=== PATIENT | female | born 1970 | race African-American/Black ===

== ENCOUNTER 2017-05-13 12:38 | Emergency (ER) | payer OTHER ==
[~2017-05-13] VITALS: Ht 157.5 cm; Wt 102.5 kg
[~2017-05-13 12:38] MED LIST: ACETAMINOPHEN-1 EAC1 PO; AMBIEN PO; ASPIRIN EC81 M1 PO; CLEOCIN HCL300 MG PO; CYMBALTA; DESYREL100 MG PO; DESYREL50 MG PO; DOXYCYCLINE 10100 M1 PO; HYDROCHLOROTHIA25 M1 PO; K-DUR10 MEQ PO; KEFLEX500 M1 PO; LOPRESSOR100 MG PO; MEVACOR 20 MG T20 MG; NORCO 5-325 TA1 EACH PO; PREDNISONE50 MG PO; PRILOSEC 20 MG20 MG PO; PRILOSEC40 MG PO; SLOW-MAG64 MG PO; TOPROL XL100 MG PO; WELLBUTRIN SR150 MG PO; WELLBUTRIN XL300 MG PO; ZANTAC 150MG T150 MG PO; ZOCOR 20 MG TAB20 M1 PO; ZOFRAN ODT4 MG PO; ZPAK PO
[2017-05-13] MEDS ORDERED: DULERA 100 MCG/13 GM INH (13:02)
[2017-05-13] MEDS ORDERED: VENTOLIN HFA 1818 GM INH (13:02)
[2017-05-13] MEDS ORDERED: WELLBUTRIN XL300 MG PO (13:03)
[2017-05-13] MEDS ORDERED: PRINIVIL10 MG PO (13:03)
[2017-05-13] MEDS ORDERED: SINGULAIR 10 MG10 M1 PO (13:03)
[2017-05-13] MEDS ORDERED: PREDNISONE 20 M20 M1 PO (13:14)
[2017-05-13] MEDS ORDERED: PROAIR HFA8.5 GM INH (13:14)
[2017-05-13] MEDS ORDERED: ZPAK PO (13:14)
[2017-05-13 13:19] VITALS: BP 139/70
== END 2017-05-13 13:20 | disposition home or self-care (01) ==
LOC: M.ERS 12:38
DX: J18.1 Lobar pneumonia, unspecified organism (principal); J45.909 Unspecified asthma, uncomplicated; F32.9 Major depressive disorder, single episode, unspecified; I10 Essential (primary) hypertension; E78.00 Pure hypercholesterolemia, unspecified; Z98.890 Other specified postprocedural states; Z88.5 Allergy status to narcotic agent

== ENCOUNTER 2017-05-30 15:42 | Emergency (ER) | payer OTHER ==
[~2017-05-30] VITALS: Ht 154.9 cm; Wt 103.9 kg
[~2017-05-30 15:42] MED LIST changes: +DULERA 100 MCG/13 GM INH; +PREDNISONE 20 M20 M1 PO; +PRINIVIL10 MG PO; +PROAIR HFA8.5 GM INH; +SINGULAIR 10 MG10 M1 PO; +VENTOLIN HFA 1818 GM INH
[2017-05-30] MEDS ORDERED: VITAMIN D2000 UNIT PO (16:29)
[2017-05-30] MEDS ORDERED: MULTI-VITAMIN1 EAC5 PO (16:29)
[2017-05-30] MEDS ORDERED: PREDNISONE 20 M20 M1 PO (16:40)
[2017-05-30] MEDS ORDERED: TESSALON PERLE100 MG PO (16:40)
[2017-05-30] MEDS ORDERED: CHERATUSSIN AC118 ML PO (16:48)
[2017-05-30 17:13] VITALS: BP 110/69
== END 2017-05-30 17:14 | disposition home or self-care (01) ==
LOC: M.ERS 15:42
DX: J45.909 Unspecified asthma, uncomplicated (principal); F32.9 Major depressive disorder, single episode, unspecified; Z98.890 Other specified postprocedural states; E78.00 Pure hypercholesterolemia, unspecified; Z88.6 Allergy status to analgesic agent

== ENCOUNTER 2017-12-04 19:05 | Emergency (ER) | payer OTHER ==
[~2017-12-04] VITALS: Ht 157.5 cm; Wt 106.6 kg
[~2017-12-04 19:05] MED LIST changes: +CHERATUSSIN AC118 ML PO; +MULTI-VITAMIN1 EAC5 PO; +TESSALON PERLE100 MG PO; +VITAMIN D2000 UNIT PO
[2017-12-04] MEDS ORDERED: FLONASE 0.05%50 MCG NASAL (19:27)
[2017-12-04] MEDS ORDERED: ALLEGRA ALLERG180 MG PO (19:27)
[2017-12-04] MEDS ORDERED: PREDNISONE 20 M20 M1 PO (19:27)
[2017-12-04 19:35] VITALS: BP 127/83
== END 2017-12-04 19:35 | disposition home or self-care (01) ==
LOC: M.ERS 19:05
DX: R05 Cough (principal); R09.89 Other specified symptoms and signs involving the circulatory and respiratory systems; R06.02 Shortness of breath; F32.9 Major depressive disorder, single episode, unspecified; J45.909 Unspecified asthma, uncomplicated; E78.00 Pure hypercholesterolemia, unspecified; Z98.890 Other specified postprocedural states; Z88.6 Allergy status to analgesic agent

== ENCOUNTER 2018-04-04 10:22 | Emergency (ER) | payer OTHER ==
[~2018-04-04] VITALS: Ht 154.9 cm; Wt 103.9 kg
[~2018-04-04 10:22] MED LIST changes: +ALLEGRA ALLERG180 MG PO; +FLONASE 0.05%50 MCG NASAL
[2018-04-04] MEDS ORDERED: BLOOD PRESSURE MED (10:37)
[2018-04-04] MEDS ORDERED: WELLBUTRIN 100100 MG PO (10:37)
[2018-04-04] MEDS ORDERED: XANAX1 MG PO (10:37)
[2018-04-04] MEDS ORDERED: ROBAXIN 750 MG750 M1 PO (11:14)
[2018-04-04 11:23] VITALS: BP 122/66
== END 2018-04-04 11:23 | disposition home or self-care (01) ==
LOC: M.ERS 10:22
DX: S39.012A Strain of muscle, fascia and tendon of lower back, initial encounter (principal); M53.3 Sacrococcygeal disorders, not elsewhere classified; F32.9 Major depressive disorder, single episode, unspecified; J45.909 Unspecified asthma, uncomplicated; E78.00 Pure hypercholesterolemia, unspecified; Z98.890 Other specified postprocedural states; Z88.6 Allergy status to analgesic agent; Z88.8 Allergy status to other drugs, medicaments and biological substances; W08.XXXA Fall from other furniture, initial encounter; Y93.89 Activity, other specified; Y92.89 Other specified places as the place of occurrence of the external cause; Y99.8 Other external cause status

== ENCOUNTER 2018-05-09 11:57 | Emergency (ER) | payer OTHER ==
[~2018-05-09] VITALS: Ht 157.5 cm; Wt 109.3 kg
[~2018-05-09 11:57] MED LIST changes: +BLOOD PRESSURE MED; +ROBAXIN 750 MG750 M1 PO; +WELLBUTRIN 100100 MG PO; +XANAX1 MG PO
[2018-05-09] MEDS ORDERED: HYDROCODON-ACE1 EAC7 PO (12:54)
[2018-05-09] MEDS ORDERED: MOBIC15 MG PO (12:54)
[2018-05-09 13:13] VITALS: BP 136/87
== END 2018-05-09 13:14 | disposition home or self-care (01) ==
LOC: M.ERS 11:57
DX: G56.01 Carpal tunnel syndrome, right upper limb (principal); J45.909 Unspecified asthma, uncomplicated; E78.00 Pure hypercholesterolemia, unspecified; F32.9 Major depressive disorder, single episode, unspecified; Z88.6 Allergy status to analgesic agent; Z88.8 Allergy status to other drugs, medicaments and biological substances; Z98.890 Other specified postprocedural states

== ENCOUNTER 2018-07-30 18:48 | Emergency (ER) | payer OTHER ==
[~2018-07-30] VITALS: Ht 154.9 cm; Wt 106.1 kg
[~2018-07-30 18:48] MED LIST changes: +HYDROCODON-ACE1 EAC7 PO; +MOBIC15 MG PO
[2018-07-30 20:32] LABS: URINE BILIRUBIN NEGATIVE (Negative); URINE BLOOD NEGATIVE (Negative); URINE CLARITY CLEAR; URINE COLOR YELLOW; URINE GLUCOSE-RANDOM NEGATIVE (Negative); URINE KETONES NEGATIVE (Negative); URINE LEUKOCYTES-REFLEX NEGATIVE (Negative); URINE NITRITE-REFLEX NEGATIVE (Negative); URINE PROTEIN NEGATIVE (Negative); URINE SPECIFIC GRAVITY 1.015 (1.005-1.030); URINE UROBILINOGEN 0.2 E.U./dl (0.2-1.0)
[2018-07-30] MEDS ORDERED: FLEXERIL PO (20:55)
[2018-07-30] MEDS ORDERED: MOBIC7.5 MG PO (20:55)
[2018-07-30 21:17] VITALS: BP 123/89
== END 2018-07-30 21:17 | disposition home or self-care (01) ==
LOC: M.ERS 18:48
PROVIDERS: Nurse Practitioner Family
DX: S29.012A Strain of muscle and tendon of back wall of thorax, initial encounter (principal); F32.9 Major depressive disorder, single episode, unspecified; J45.909 Unspecified asthma, uncomplicated; E78.00 Pure hypercholesterolemia, unspecified; Z98.890 Other specified postprocedural states; Z88.6 Allergy status to analgesic agent; Z88.8 Allergy status to other drugs, medicaments and biological substances; X58.XXXA Exposure to other specified factors, initial encounter; Y93.89 Activity, other specified; Y92.89 Other specified places as the place of occurrence of the external cause; Y99.8 Other external cause status

== ENCOUNTER 2018-11-11 19:58 | Emergency (ER) | payer OTHER ==
[~2018-11-11] VITALS: Ht 154.9 cm; Wt 113.3 kg
[~2018-11-11 19:58] MED LIST changes: +FLEXERIL PO; +MOBIC7.5 MG PO
[2018-11-11] MEDS ORDERED: NEURONTIN 300300 M1 PO (20:13)
[2018-11-11] MEDS ORDERED: LIPITOR 20 MG T20 M1 PO (20:13)
[2018-11-11] MEDS ORDERED: METFORMIN HCL500 MG PO (20:13)
[2018-11-11 20:38] LABS: ABSOLUTE EOSINOPHILS 0.1 thou/uL (0.0-0.7); ABSOLUTE MONOCYTES 0.4 thou/uL (0.0-1.2); ABSOLUTE NEUTROPHILS 5.1 thou/uL (1.6-8.1); BASOPHILS 0.4 %; EOSINOPHILS 1.3 %; HEMATOCRIT 41.3 % (37.0-47.0); HEMOGLOBIN 13.7 gm/dL (12.0-15.0); LYMPHOCYTES 26.2 %; MCH 30.3 pg (26.0-34.0); MCHC 33.2 g/dL (28.0-37.0); MCV 91.4 fL (80.0-100.0); MONOCYTES 5.7 %; MPV 7.2 fl. (7.2-11.1); NUCLEATED RBCS 0 /100WBC; PLATELET COUNT* 212 thou/uL (150-400); POLYS 66.4 %; RBC 4.52 mil/uL (4.20-5.00); RDW-CV 13.2 % (10.5-14.5); WBC 7.7 thou/uL (4.0-11.0)
[2018-11-11 20:47] LABS: APTT 27.1 Seconds (25.0-31.3); PROTIME 9.8 Seconds (9.20-11.50)
[2018-11-11 20:55] LABS: ANION GAP 8 mmol/L (7-16); BUN 14 mg/dL (7-18); CALCIUM 10.2 mg/dL (8.5-10.1); CHLORIDE 103 mmol/L (98-107); CO2 32 mmol/L (21-32); CREATININE 0.9 mg/dL (0.6-1.3); GLUCOSE 99 mg/dL (70-99); SODIUM 143 mmol/L (136-145)
[2018-11-11 20:59] LABS: ALBUMIN 3.8 g/dL (3.4-5.0); ALKALINE PHOSPHATASE 45 U/L (46-116); NT-PRO BRAIN NAT PEPTIDE 53 pg/mL (<300); SGOT 11 U/L (15-37); SGPT 21 U/L (30-65); TOTAL BILIRUBIN 0.3 mg/dL (<0.1-1.0); TOTAL PROTEIN 7.7 g/dL (6.4-8.2); TROPONIN-I LEVEL <0.06 ng/mL (<0.06)
[2018-11-11 21:27] VITALS: BP 125/73
--- NOTE | 2018-11-12 10:56 | EKG ---
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
== END 2018-11-11 21:31 | disposition home or self-care (01) ==
LOC: M.ERS 19:58
PROVIDERS: Family Medicine
DX: R00.2 Palpitations (principal); F32.9 Major depressive disorder, single episode, unspecified; E78.00 Pure hypercholesterolemia, unspecified; J45.909 Unspecified asthma, uncomplicated; Z98.890 Other specified postprocedural states; Z88.6 Allergy status to analgesic agent; Z88.8 Allergy status to other drugs, medicaments and biological substances

== ENCOUNTER 2018-12-31 17:11 | Emergency (ER) | payer OTHER ==
[~2018-12-31] VITALS: Ht 154.9 cm; Wt 116.6 kg
[~2018-12-31 17:11] MED LIST changes: +LIPITOR 20 MG T20 M1 PO; +METFORMIN HCL500 MG PO; +NEURONTIN 300300 M1 PO
[2018-12-31] MEDS ORDERED: SYMBICORT160 MCG/4. INH (17:24)
[2018-12-31 17:46] LABS: ABSOLUTE BASOPHILS 0.1 thou/uL (0.0-0.2); ABSOLUTE EOSINOPHILS 0.1 thou/uL (0.0-0.7); ABSOLUTE LYMPHOCYTES 1.8 thou/uL (0.8-5.3); ABSOLUTE MONOCYTES 0.5 thou/uL (0.0-1.2); ABSOLUTE NEUTROPHILS 6.2 thou/uL (1.6-8.1); BASOPHILS 0.6 %; EOSINOPHILS 1.7 %; HEMATOCRIT 40.4 % (37.0-47.0); HEMOGLOBIN 13.4 gm/dL (12.0-15.0); LYMPHOCYTES 21.3 %; MCH 30.9 pg (26.0-34.0); MCV 93.5 fL (80.0-100.0); MONOCYTES 5.3 %; MPV 7.5 fl. (7.2-11.1); NUCLEATED RBCS 0 /100WBC; PLATELET COUNT* 232 thou/uL (150-400); POLYS 71.1 %; RBC 4.33 mil/uL (4.20-5.00); RDW-CV 13.3 % (10.5-14.5); WBC 8.7 thou/uL (4.0-11.0)
[2018-12-31 18:03] LABS: CREATININE 0.9 mg/dL (0.6-1.3); POTASSIUM 3.9 mmol/L (3.5-5.1)
[2018-12-31 18:08] LABS: ALBUMIN 3.6 g/dL (3.4-5.0); TOTAL BILIRUBIN 0.4 mg/dL (<0.1-1.0); TOTAL PROTEIN 6.8 g/dL (6.4-8.2)
[2018-12-31] MEDS ORDERED: IPRAT-ALBUT 0.5-3 ML INH (18:25)
[2018-12-31] MEDS ORDERED: PREDNISONE 20 M20 MG PO (18:25)
[2018-12-31 18:49] VITALS: BP 109/64
--- NOTE | 2019-01-01 09:46 | EKG ---
[place] [address] ELECTROCARDIOGRAM REPORT Name: YVONNE MORROWLE Room: [facility] [place]Jonh#: [id number] Admission: 12/31/18 Attend Phys: Discharge: 12/31/18 Date of : 74 Report #: [id number] THIS REPORT FOR: //name// [facility] ED Test Date: 2018-12-31 Test Time: 17:23:44 Pat Name: SUNG MORROW Department: Room: Gender: F Prototyper: : 1970 Requested By: Cullen Jacinto Order Number: [id number] MD: Philipp Hair Measurements Intervals [place] Rate: 76 P: 38 TN: 132 QRS: 32 QRSD: 73 T: -5 QT: 353 QTc: 397 Interpretive Statements Sinus rhythm Borderline repolarization abnormality Compared to ECG 11/11/2018 20:21:29 no change Electronically Signed On 01-01-2019 9:46:27 CDT by Philipp Hair [email or web address] <ELECTRONICALLY SIGNED> By: Philipp Hair MD, [facility] 01/01/19 0946 1723 1723 Philipp Hair MD, FACC /EPI
== END 2018-12-31 18:49 | disposition home or self-care (01) ==
LOC: M.ERS 17:11
PROVIDERS: Nurse Practitioner Psychiatric/Mental Health
DX: J45.909 Unspecified asthma, uncomplicated (principal); I10 Essential (primary) hypertension; E78.00 Pure hypercholesterolemia, unspecified; F32.9 Major depressive disorder, single episode, unspecified; Z98.890 Other specified postprocedural states; Z88.8 Allergy status to other drugs, medicaments and biological substances; Z88.6 Allergy status to analgesic agent; Z87.01 Personal history of pneumonia (recurrent)

== ENCOUNTER 2019-02-10 19:20 | Emergency (ER) | payer OTHER ==
[~2019-02-10] VITALS: Ht 154.9 cm; Wt 108.0 kg
[~2019-02-10 19:20] MED LIST changes: +IPRAT-ALBUT 0.5-3 ML INH; +PREDNISONE 20 M20 MG PO; +SYMBICORT160 MCG/4. INH
[2019-02-10 19:44] LABS: ABSOLUTE EOSINOPHILS 0.1 thou/uL (0.0-0.7); ABSOLUTE LYMPHOCYTES 1.8 thou/uL (0.8-5.3); ABSOLUTE MONOCYTES 0.5 thou/uL (0.0-1.2); ABSOLUTE NEUTROPHILS 5.5 thou/uL (1.6-8.1); BASOPHILS 0.5 %; EOSINOPHILS 0.9 %; HEMOGLOBIN 13.1 gm/dL (12.0-15.0); LYMPHOCYTES 23.1 %; MCH 31.7 pg (26.0-34.0); MCHC 34.5 g/dL (28.0-37.0); MONOCYTES 5.9 %; MPV 7.4 fl. (7.2-11.1); NUCLEATED RBCS 0 /100WBC; PLATELET COUNT* 211 thou/uL (150-400); POLYS 69.6 %; RBC 4.14 mil/uL (4.20-5.00); RDW-CV 13.3 % (10.5-14.5)
[2019-02-10 19:53] LABS: ANION GAP 15 mmol/L (7-16); APTT 26.6 Seconds (25.0-31.3); BUN 17 mg/dL (7-18); CALCIUM 10.1 mg/dL (8.5-10.1); CHLORIDE 106 mmol/L (98-107); CO2 23 mmol/L (21-32); GLUCOSE 93 mg/dL (70-99); PROTIME 10.3 Seconds (9.20-11.50); SODIUM 144 mmol/L (136-145)
[2019-02-10 19:55] LABS: POTASSIUM 2.9 mmol/L (3.5-5.1)
[2019-02-10 20:05] LABS: ALBUMIN 3.9 g/dL (3.4-5.0); ALKALINE PHOSPHATASE 54 U/L (46-116); CK-MB MASS 0.8 ng/mL (<0.5-3.6); LIPASE 66 U/L (73-393); MAGNESIUM 1.5 mg/dL (1.8-2.4); NT-PRO BRAIN NAT PEPTIDE 54 pg/mL (<300); SGOT 11 U/L (15-37); SGPT 26 U/L (30-65); TOTAL BILIRUBIN 0.4 mg/dL (<0.1-1.0); TOTAL PROTEIN 7.7 g/dL (6.4-8.2); TROPONIN-I LEVEL <0.06 ng/mL (<0.06)
[2019-02-10 20:33] VITALS: BP 118/70
--- NOTE | 2019-02-11 16:20 | EKG ---
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 : 1970 Requested By: Scott Brunson Order Number: [id number] MD: Jonathan Min Measurements Intervals [place] Rate: 98 P: 46 MD: 164 QRS: 35 QRSD: 79 T: -4 QT: 324 QTc: 414 Interpretive Statements Sinus rhythm Ventricular premature complex Borderline T abnormalities, inferior leads Compared to ECG 12/31/2018 17:23:44 Ventricular premature complex(es) now present T-wave abnormality now present Electronically Signed On 02-11-2019 16:20:35 CDT by Jonathan Min [email or web address] <ELECTRONICALLY SIGNED> By: Jonathan Min MD, [facility] 02/11/19 1620 27 27 Jonathan Min MD, [facility] /EPI
== END 2019-02-10 20:33 | disposition home or self-care (01) ==
LOC: M.ERS 19:20
PROVIDERS: Family Medicine
DX: F41.0 Panic disorder [episodic paroxysmal anxiety] (principal); E87.6 Hypokalemia; F32.9 Major depressive disorder, single episode, unspecified; J45.909 Unspecified asthma, uncomplicated; E78.00 Pure hypercholesterolemia, unspecified; Z98.890 Other specified postprocedural states; Z88.8 Allergy status to other drugs, medicaments and biological substances

== ENCOUNTER 2019-06-01 18:40 | Emergency (ER) | payer OTHER ==
[~2019-06-01] VITALS: Ht 157.5 cm; Wt 109.3 kg
[2019-06-01] MEDS ORDERED: METFORMIN HCL500 M3 PO (18:56)
[2019-06-01] MEDS ORDERED: TRULICITY1.5 MG/0.5 (18:56)
[2019-06-01] MEDS ORDERED: NORCO 5-325 TA1 EAC1 PO (19:49)
[2019-06-01] MEDS ORDERED: DOXYCYCLINE 10100 MG PO (19:49)
[2019-06-01 21:30] VITALS: BP 124/82
== END 2019-06-01 21:31 | disposition home or self-care (01) ==
LOC: M.ERS 18:40
DX: L02.412 Cutaneous abscess of left axilla (principal); J45.909 Unspecified asthma, uncomplicated; E78.00 Pure hypercholesterolemia, unspecified; Z88.6 Allergy status to analgesic agent; Z88.8 Allergy status to other drugs, medicaments and biological substances; Z98.890 Other specified postprocedural states

== ENCOUNTER 2019-10-05 23:04 | Emergency (ER) | payer OTHER ==
[~2019-10-05] VITALS: Ht 157.5 cm; Wt 107.0 kg
[~2019-10-05 23:04] MED LIST changes: +DOXYCYCLINE 10100 MG PO; +METFORMIN HCL500 M3 PO; +NORCO 5-325 TA1 EAC1 PO; +TRULICITY1.5 MG/0.5
[2019-10-05] MEDS ORDERED: CIPRO500 M1 PO (23:14)
[2019-10-05] MEDS ORDERED: LISINOPRIL-HCT1 EACH PO (23:15)
[2019-10-05] MEDS ORDERED: SPIRONOLACTONE50 MG PO (23:16)
[2019-10-05] MEDS ORDERED: SINGULAIR 10 MG10 MG PO (23:16)
[2019-10-05 23:37] LABS: ABSOLUTE BASOPHILS 0.1 thou/uL (0.0-0.2); ABSOLUTE EOSINOPHILS 0.1 thou/uL (0.0-0.7); ABSOLUTE LYMPHOCYTES 1.4 thou/uL (0.8-5.3); ABSOLUTE MONOCYTES 0.5 thou/uL (0.0-1.2); ABSOLUTE NEUTROPHILS 7.2 thou/uL (1.6-8.1); BASOPHILS 0.5 %; EOSINOPHILS 1.1 %; HEMATOCRIT 35.4 % (37.0-47.0); HEMOGLOBIN 12.1 gm/dL (12.0-15.0); LYMPHOCYTES 15.4 %; MCH 31.2 pg (26.0-34.0); MCHC 34.1 g/dL (28.0-37.0); MCV 91.6 fL (80.0-100.0); MONOCYTES 4.9 %; MPV 7.6 fl. (7.2-11.1); NUCLEATED RBCS 0 /100WBC; PLATELET COUNT* 217 thou/uL (150-400); POLYS 78.1 %; RBC 3.87 mil/uL (4.20-5.00); RDW-CV 13.5 % (10.5-14.5); WBC 9.3 thou/uL (4.0-11.0)
[2019-10-05 23:45] LABS: CALCIUM 9.7 mg/dL (8.5-10.1); CREATININE 1.3 mg/dL (0.6-1.3); POTASSIUM 3.7 mmol/L (3.5-5.1)
[2019-10-06 00:01] LABS: ALBUMIN 3.5 g/dL (3.4-5.0); TOTAL BILIRUBIN 0.8 mg/dL (<0.1-1.0); TOTAL PROTEIN 7.8 g/dL (6.4-8.2)
[2019-10-06] MEDS ORDERED: PREDNISONE50 MG PO (02:34)
[2019-10-06 02:43] VITALS: BP 128/78
--- NOTE | 2019-10-06 11:09 | EKG ---
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: [place] : 1970 Requested By: Colleen Rincon Order Number: [id number] MD: Jonathan Min Measurements Intervals [place] Rate: 91 P: 44 [place]: 160 QRS: 43 QRSD: 69 T: 10 QT: 343 QTc: 423 Interpretive Statements Sinus rhythm Borderline T abnormalities, anterior leads Baseline wander in lead(s) II,aVR,V1,V2 Compared to ECG 02/10/2019 19:28:42 Ventricular premature complex(es) no longer present T-wave abnormality still present Electronically Signed On 10-06-2019 11:07:25 CDT by Jonathan Min [email or web address] <ELECTRONICALLY SIGNED> By: Jonathan Min MD, FAC 10/06/19 1107 06 06 Jonathan Min MD, FACC /EPI
--- NOTE | 2019-10-07 05:26 | NUR ---
LAB CALLED WITH POSITIVE BLOOD CULTURE RESULTS. DR SALAZAR NOTIFIED. NO ORDERS GIVEN.
== END 2019-10-06 02:44 | disposition home or self-care (01) ==
LOC: M.ERS 23:04
PROVIDERS: Emergency Medicine
DX: R06.00 Dyspnea, unspecified (principal); M79.661 Pain in right lower leg; E11.9 Type 2 diabetes mellitus without complications; E78.00 Pure hypercholesterolemia, unspecified; J45.909 Unspecified asthma, uncomplicated; F32.9 Major depressive disorder, single episode, unspecified; Z98.890 Other specified postprocedural states; Z88.6 Allergy status to analgesic agent; Z88.8 Allergy status to other drugs, medicaments and biological substances

== ENCOUNTER 2019-10-13 17:18 | Inpatient (IN) | payer OTHER ==
[~2019-10-13] VITALS: Ht 157.5 cm; Wt 117.2 kg
[~2019-10-13 17:18] MED LIST changes: +CIPRO500 M1 PO; +LISINOPRIL-HCT1 EACH PO; +SINGULAIR 10 MG10 MG PO; +SPIRONOLACTONE50 MG PO
[2019-10-13 17:27] VITALS: BP 124/77
[2019-10-13 18:25] LABS: HEMATOCRIT 35.8 % (37.0-47.0); HEMOGLOBIN 12.2 gm/dL (12.0-15.0); MCH 30.8 pg (26.0-34.0); MCHC 34.1 g/dL (28.0-37.0); MCV 90.3 fL (80.0-100.0); MPV 7.9 fl. (7.2-11.1); NUCLEATED RBCS 0 /100WBC; PLATELET COUNT* 246 thou/uL (150-400); RBC 3.96 mil/uL (4.20-5.00); RDW-CV 13.7 % (10.5-14.5); WBC 8.1 thou/uL (4.0-11.0)
[2019-10-13 18:34] LABS: CALCIUM 9.3 mg/dL (8.5-10.1); CREATININE 1.3 mg/dL (0.6-1.3); POTASSIUM 3.5 mmol/L (3.5-5.1)
[2019-10-13 18:37] LABS: APTT 24.9 Seconds (25.0-31.3)
[2019-10-13 18:46] LABS: ABSOLUTE LYMPHOCYTES 0.4 thou/uL (0.8-5.3); ABSOLUTE NEUTROPHILS 7.7 thou/uL (1.6-8.1); ANISOCYTOSIS Occasional; PLATELET ESTIMATE ADEQUATE; POLYCHROMASIA Occasional
[2019-10-13 18:48] LABS: ALBUMIN 3.4 g/dL (3.4-5.0); TOTAL BILIRUBIN 0.5 mg/dL (<0.1-1.0); TOTAL PROTEIN 7.7 g/dL (6.4-8.2)
[2019-10-13 20:11] LABS: URINE BILIRUBIN NEGATIVE (Negative); URINE BLOOD NEGATIVE (Negative); URINE CLARITY CLEAR; URINE COLOR YELLOW; URINE GLUCOSE-RANDOM 3+ (Negative); URINE KETONES NEGATIVE (Negative); URINE LEUKOCYTES-REFLEX 1+ (Negative); URINE NITRITE-REFLEX NEGATIVE (Negative); URINE PROTEIN NEGATIVE (Negative)
[2019-10-13 20:17] VITALS: BP 111/70
[2019-10-13 20:19] LABS: SQUAMOUS 0-3 Few /LPF (0-3)
[2019-10-13 20:20] LABS: BACTERIA-REFLEX >30 Many /HPF (None Seen); CASTS None Seen /LPF (None Seen); CRYSTALS None Seen /LPF (None Seen); URINE RBC 0-2 Rare /HPF (0-2)
[2019-10-13 22:00] VITALS: BP 139/75
[2019-10-14 04:00] VITALS: BP 144/72
[2019-10-14 05:08] LABS: ABSOLUTE LYMPHOCYTES 0.5 thou/uL (0.8-5.3); ABSOLUTE MONOCYTES 0.2 thou/uL (0.0-1.2); ABSOLUTE NEUTROPHILS 5.8 thou/uL (1.6-8.1); BASOPHILS 0.1 %; HEMATOCRIT 35.3 % (37.0-47.0); HEMOGLOBIN 11.7 gm/dL (12.0-15.0); LYMPHOCYTES 7.6 %; MCH 30.7 pg (26.0-34.0); MCHC 33.3 g/dL (28.0-37.0); MCV 92.2 fL (80.0-100.0); MONOCYTES 3.2 %; MPV 7.6 fl. (7.2-11.1); NUCLEATED RBCS 0 /100WBC; PLATELET COUNT* 236 thou/uL (150-400); POLYS 89.1 %; RBC 3.83 mil/uL (4.20-5.00); RDW-CV 13.6 % (10.5-14.5); WBC 6.5 thou/uL (4.0-11.0)
[2019-10-14 05:29] LABS: CALCIUM 8.9 mg/dL (8.5-10.1); CREATININE 1.2 mg/dL (0.6-1.3); POTASSIUM 4.1 mmol/L (3.5-5.1)
[2019-10-14 12:00] VITALS: BP 129/76
--- NOTE | 2019-10-14 15:46 | EKG ---
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
--- NOTE | 2019-10-14 16:40 | NUR ---
PT TOLERATING PO AND UP AROUND ROOM. WILL TRNASFER TO ROOM 228 WHEN CLEAN. PT PROGRESSING TOWARDS GOALS.
[2019-10-14 19:50] VITALS: BP 138/76
[2019-10-15 02:07] LABS: GLYCOHEMOGLOBIN (HGB A1C) 6.5 % (4.8-5.6)
[2019-10-15 04:00] VITALS: BP 116/70
--- NOTE | 2019-10-15 05:09 | NUR ---
PT CARE ASSUMED AT 1930. SAT MAINTAINED IN O2. SOB WITH EXERTION. ALERT AND ORIENTED X4. DENIES PAIN. CALL LIGHT WITHIN REACH AND BED IN LOW POSITION. HOURLY ROUNDING DONE FOR PT SAFETY.
--- NOTE | 2019-10-15 11:32 | NUR ---
Nutrition: screen d/t BMI. Pt reports good appetite. Denied nutrition concerns. Albumin WNL. Meds reviewed. Pt declined education. Low nutrition risk.
[2019-10-15 12:00] VITALS: BP 124/79
[2019-10-15 16:00] VITALS: BP 125/75
--- NOTE | 2019-10-15 16:00 | NUR ---
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 HER CHILDREN LIVE WITH HER. SHE HAS A CANE,SHE USES AT TIMES. NO OTHER DME. NO O2. PLANS ON 1-2 MORE DAYS BEFORE DISCHARGE.
--- NOTE | 2019-10-15 16:30 | NUR ---
PT TOLERATEDPO WELL, DISCONTINUE IVF. PT UP AND AROUND ROOM, WILL DISCHAGRE IN THE AM.
[2019-10-15 20:00] VITALS: BP 121/67
[2019-10-16] VITALS: BP 136/70
[2019-10-16 04:00] VITALS: BP 117/55
--- NOTE | 2019-10-16 04:56 | NUR ---
PT CARE ASSUMED AT 1930. SAT MAINTAINED IN RA. SOB WITH EXERTION. DENIES PAIN. ALERT AMD ORIENTED X4. CALL LIGHT WITHION REACH AND BED IN LOW POSITION. HOURLY ROUNDING DONE FOR PT SAFETY.
[2019-10-16 05:38] LABS: ABSOLUTE EOSINOPHILS 0.2 thou/uL (0.0-0.7); ABSOLUTE LYMPHOCYTES 3.1 thou/uL (0.8-5.3); ABSOLUTE MONOCYTES 0.5 thou/uL (0.0-1.2); ABSOLUTE NEUTROPHILS 5.7 thou/uL (1.6-8.1); BASOPHILS 0.2 %; EOSINOPHILS 1.7 %; HEMOGLOBIN 11.6 gm/dL (12.0-15.0); MCH 30.8 pg (26.0-34.0); MCV 90.4 fL (80.0-100.0); MONOCYTES 4.8 %; MPV 7.5 fl. (7.2-11.1); NUCLEATED RBCS 0 /100WBC; PLATELET COUNT* 221 thou/uL (150-400); POLYS 60.3 %; RBC 3.76 mil/uL (4.20-5.00); RDW-CV 13.6 % (10.5-14.5); WBC 9.4 thou/uL (4.0-11.0)
[2019-10-16 05:48] LABS: CALCIUM 8.7 mg/dL (8.5-10.1); CREATININE 0.9 mg/dL (0.6-1.3); POTASSIUM 3.3 mmol/L (3.5-5.1)
[2019-10-16 08:00] VITALS: BP 121/63
[2019-10-16] MEDS ORDERED: PROTONIX40 M1 PO (14:00)
[2019-10-16] MEDS ORDERED: CEFDINIR300 MG PO (14:03)
[2019-10-16] MEDS ORDERED: PREDNISONE 5 MG5 M1 PO (15:01)
[2019-10-16 15:11] VITALS: BP 121/63
--- NOTE | 2019-10-16 17:07 | NUR ---
PT AOX4, VSS, DENIES PAIN, SR ON MONITOR. HOURLY ROUNDING PERFORMED. CALL LIGHT AND PERSONAL BELONGINGS PLACED WITHIN REACH. DISCHARGE ORDERS RECEIVED. DISCHARGE SUMMARYM CARENOTES AND PRESCRIPTIONS [ROVIDED. MEDICATIONS, DIET AND ACTIVITY RESTRICTIONS EXPLAINED AND PT. VERBALIZES UNDERSTANDING. IV DCED BY NURSING STAFF WITHOUT COMPLICATIONS. PT. LEFT UNIT BY WC BY NURSING STAFF WITH PERSONAL BELONGINGS AND PICKED UP BY SISTER AT CAR AT MAIN ENTRANCE.
== END 2019-10-16 15:30 | disposition home or self-care (01) | DRG 189 ==
LOC: M.ERS 17:18 → M.TBA-ER 19:42 → M.2W 19:42 → M.ERS 20:18 → M.2W 21:49
PROVIDERS: Nurse Practitioner Family; Personal Emergency Response Attendant; ADMIT Internal Medicine; ATTEND Internal Medicine
DX: J96.01 Acute respiratory failure with hypoxia (principal); J45.901 Unspecified asthma with (acute) exacerbation; N39.0 Urinary tract infection, site not specified; Z68.42 Body mass index [BMI] 45.0-49.9, adult; E66.01 Morbid (severe) obesity due to excess calories; F41.9 Anxiety disorder, unspecified; E11.65 Type 2 diabetes mellitus with hyperglycemia; I10 Essential (primary) hypertension; E78.5 Hyperlipidemia, unspecified; G47.30 Sleep apnea, unspecified; E78.00 Pure hypercholesterolemia, unspecified; F32.9 Major depressive disorder, single episode, unspecified; Z20.828 Contact with and (suspected) exposure to other viral communicable diseases; Z98.891 History of uterine scar from previous surgery; Z79.84 Long term (current) use of oral hypoglycemic drugs; Z79.899 Other long term (current) drug therapy; Z88.8 Allergy status to other drugs, medicaments and biological substances; Z72.89 Other problems related to lifestyle

== ENCOUNTER 2020-01-07 18:51 | Emergency (ER) | payer OTHER ==
[~2020-01-07] VITALS: Ht 157.5 cm; Wt 105.2 kg
[~2020-01-07 18:51] MED LIST changes: +CEFDINIR300 MG PO; +PREDNISONE 5 MG5 M1 PO; +PROTONIX40 M1 PO
[2020-01-07] MEDS ORDERED: WELLBUTRIN XL300 MG PO (19:14)
[2020-01-07] MEDS ORDERED: SYMBICORT160 MCG/4. INH (19:15)
[2020-01-07] MEDS ORDERED: VESICARE10 M1 PO (19:16)
[2020-01-07] MEDS ORDERED: FARYDAK10 MG PO (19:16)
[2020-01-07 20:07] LABS: BE 1.4 mmol/L (-2 to +3); PCO2 42.8 mmHg (35.0-45.0); pH 7.408 (7.340-7.450)
[2020-01-07] MEDS ORDERED: PREDNISONE50 MG PO (20:49)
[2020-01-07 21:03] VITALS: BP 109/73
== END 2020-01-07 21:04 | disposition home or self-care (01) ==
LOC: M.ERS 18:51
PROVIDERS: Emergency Medicine
DX: J45.901 Unspecified asthma with (acute) exacerbation (principal); E11.9 Type 2 diabetes mellitus without complications; F32.9 Major depressive disorder, single episode, unspecified; Z98.890 Other specified postprocedural states; Z88.6 Allergy status to analgesic agent; Z88.8 Allergy status to other drugs, medicaments and biological substances

== ENCOUNTER 2020-01-18 22:09 | Emergency (ER) | payer OTHER ==
[~2020-01-18] VITALS: Ht 157.5 cm; Wt 107.0 kg
[~2020-01-18 22:09] MED LIST changes: +FARYDAK10 MG PO; +VESICARE10 M1 PO
[2020-01-18] MEDS ORDERED: FAMOTIDINE20 MG PO (22:20)
[2020-01-18] MEDS ORDERED: TRULICITY0.75 MG/0. SUBQ (22:21)
[2020-01-18] MEDS ORDERED: SPIRONOLACTONE50 MG PO (22:21)
[2020-01-18 22:50] LABS: ABSOLUTE BASOPHILS 0.1 thou/uL (0.0-0.2); ABSOLUTE EOSINOPHILS 0.1 thou/uL (0.0-0.7); ABSOLUTE MONOCYTES 0.4 thou/uL (0.0-1.2); ABSOLUTE NEUTROPHILS 5.1 thou/uL (1.6-8.1); EOSINOPHILS 1.5 %; HEMOGLOBIN 13.5 gm/dL (12.0-15.0); MCH 30.9 pg (26.0-34.0); MCHC 33.7 g/dL (28.0-37.0); MCV 91.5 fL (80.0-100.0); MONOCYTES 5.2 %; NUCLEATED RBCS 0 /100WBC; PLATELET COUNT* 224 thou/uL (150-400); POLYS 66.3 %; RBC 4.38 mil/uL (4.20-5.00); RDW-CV 13.8 % (10.5-14.5); WBC 7.7 thou/uL (4.0-11.0)
[2020-01-18 23:03] LABS: CALCIUM 9.5 mg/dL (8.5-10.1); CREATININE 1.2 mg/dL (0.6-1.3); POTASSIUM 3.5 mmol/L (3.5-5.1)
[2020-01-18 23:15] LABS: ALBUMIN 3.5 g/dL (3.4-5.0); TOTAL BILIRUBIN 0.4 mg/dL (<0.1-1.0); TOTAL PROTEIN 7.4 g/dL (6.4-8.2)
[2020-01-19 00:25] VITALS: BP 146/94
--- NOTE | 2020-01-19 14:19 | EKG ---
[place] [address] ELECTROCARDIOGRAM REPORT Name: SUNG MORROW Room: [facility]#: [id number] Admission: 01/18/20 Attend Phys: Discharge: 01/19/20 Date of : 74 Date of Service: 01/18/20 2243 Report #: [id number] THIS REPORT FOR: //name// [facility] ED Test Date: 2020-01-18 Test Time: 22:43:59 Pat Name: SUNG MORROW Department: Room: Gender: Fullerette: [facility] : 1970 Requested By: Colleen Rincon Order Number: [id number] MD: Fer Bauman Measurements Intervals [place] Rate: 94 P: -52 MT: 130 QRS: 26 QRSD: 73 T: -33 QT: 327 QTc: 409 Interpretive Statements Sinus or ectopic atrial rhythm Repol abnrm suggests ischemia, inferior leads Compared to ECG 10/13/2019 18:25:48 Ectopic atrial rhythm now present Early repolarization now present Possible ischemia now present Sinus rhythm no longer present Electronically Signed On 01-19-2020 14:19:07 CDT by Fer Bauman [email or web address] <ELECTRONICALLY SIGNED> By: Bozena Bauman MD, [facility] 01/19/20 1419 2243 2243 Bozena Bauman MD, [facility] /EPI
== END 2020-01-19 00:25 | disposition home or self-care (01) ==
LOC: M.ERS 22:09
PROVIDERS: Emergency Medicine
DX: R06.00 Dyspnea, unspecified (principal); Z20.828 Contact with and (suspected) exposure to other viral communicable diseases; E11.9 Type 2 diabetes mellitus without complications; Z98.890 Other specified postprocedural states; E78.00 Pure hypercholesterolemia, unspecified; J45.909 Unspecified asthma, uncomplicated; Z88.6 Allergy status to analgesic agent; Z88.5 Allergy status to narcotic agent; Z88.8 Allergy status to other drugs, medicaments and biological substances

== ENCOUNTER 2020-03-15 15:20 | Inpatient (IN) | payer OTHER ==
[~2020-03-15] VITALS: Ht 154.9 cm; Wt 109.8 kg
[~2020-03-15 15:20] MED LIST changes: +FAMOTIDINE20 MG PO; +TRULICITY0.75 MG/0. SUBQ
[2020-03-15 15:36] VITALS: BP 119/68
[2020-03-15] MEDS ORDERED: CIMETIDINE 400400 MG PO (15:40)
[2020-03-15] MEDS ORDERED: FARXIGA10 MG PO (15:40)
[2020-03-15] MEDS ORDERED: BENICAR40 MG PO (15:40)
[2020-03-15] MEDS ORDERED: ASA81BEC PO (15:40)
[2020-03-15 16:26] LABS: ABSOLUTE MONOCYTES 0.3 thou/uL (0.0-1.2); ABSOLUTE NEUTROPHILS 4.4 thou/uL (1.6-8.1); BASOPHILS 0.6 %; EOSINOPHILS 0.2 %; HEMATOCRIT 41.2 % (37.0-47.0); HEMOGLOBIN 13.9 gm/dL (12.0-15.0); LYMPHOCYTES 16.9 %; MCH 30.7 pg (26.0-34.0); MCHC 33.7 g/dL (28.0-37.0); MONOCYTES 4.6 %; MPV 7.4 fl. (7.2-11.1); NUCLEATED RBCS 0 /100WBC; PLATELET COUNT* 193 thou/uL (150-400); POLYS 77.7 %; RBC 4.52 mil/uL (4.20-5.00); RDW-CV 14.1 % (10.5-14.5); WBC 5.7 thou/uL (4.0-11.0)
[2020-03-15 16:35] LABS: CALCIUM 9.9 mg/dL (8.5-10.1); CREATININE 1.3 mg/dL (0.6-1.3); POTASSIUM 3.8 mmol/L (3.5-5.1)
[2020-03-15 16:42] LABS: APTT 27.1 Seconds (25.0-31.3); PROTIME 10.4 Seconds (9.20-11.50)
[2020-03-15 16:46] LABS: ALBUMIN 3.6 g/dL (3.4-5.0); TOTAL BILIRUBIN 0.7 mg/dL (<0.1-1.0)
[2020-03-15 22:00] VITALS: BP 112/70
[2020-03-16 03:53] VITALS: BP 114/68
[2020-03-16 07:00] VITALS: BP 119/78
[2020-03-16 13:50] VITALS: BP 105/72
--- NOTE | 2020-03-16 16:36 | EKG ---
[place] [address] ELECTROCARDIOGRAM REPORT Name: SUNG MORROW Room: [place] [address] ADM IN ..#: [id number] Admission: 03/15/20 Attend Phys: Samantha Laguna, Discharge: Date of : 74 Date of Service: 03/15/20 1601 Report #: [id number] THIS REPORT FOR: //name// [facility] ED Test Date: 2020-03-15 Test Time: 16:01:40 Pat Name: SUNG MORROW Department: Room: [facility] Gender: F Injury/Safety Hazard Assessment: HAR[place] : 1970 Requested By: Scott Brunson Order Number: [id number] MD: Jonathan Min Measurements Intervals [place] Rate: 108 P: 24 WI: 156 QRS: 25 QRSD: 62 T: -15 QT: 337 QTc: 452 Interpretive Statements Sinus tachycardia Borderline T abnormalities, diffuse leads Compared to ECG 01/18/2020 22:43:59 T-wave abnormality now present Early repolarization no longer present Possible ischemia no longer present Electronically Signed On 03-16-2020 16:36:03 SASH REPAIRER by Jonathan Min [email or web address] <ELECTRONICALLY SIGNED> By: Jonathan Min MD, FACC 03/16/20 1636 1601 1601 Jonathan Min MD, FAC /EPI
[2020-03-16 18:34] VITALS: BP 122/65
[2020-03-16 19:45] VITALS: BP 112/65
[2020-03-16 21:00] VITALS: BP 102/57
[2020-03-17 00:56] VITALS: BP 100/61
[2020-03-17 04:56] VITALS: BP 103/63
[2020-03-17 12:59] VITALS: BP 102/56
[2020-03-17 15:30] VITALS: BP 104/71
[2020-03-17 20:00] VITALS: BP 107/71
[2020-03-18] VITALS (8 sets, daily range): BP systolic 108–129; BP diastolic 68–79
[2020-03-18 05:58] LABS: CALCIUM 9.5 mg/dL (8.5-10.1); MAGNESIUM 2.4 mg/dL (1.8-2.4); POTASSIUM 3.6 mmol/L (3.5-5.1)
--- NOTE | 2020-03-18 10:51 | EKG ---
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 : 1970 Requested By: Brenden Ellison Order Number: [id number] Marvin MD: Jonathan Min Measurements Intervals [place] Rate: 93 P: 53 TN: 145 QRS: 35 QRSD: 79 T: 10 QT: 329 QTc: 410 Interpretive Statements Sinus rhythm Compared to ECG 03/15/2020 16:01:40 Sinus tachycardia no longer present T-wave abnormality no longer present Electronically Signed On 03-18-2020 10:51:36 HANDLE AND VENT MACHINE OPERATOR by Jonathan Min [email or web address] <ELECTRONICALLY SIGNED> By: Jonathan Min MD, [facility] 03/18/20 1051 0416 0416 Jonathan Min MD, [facility] /EPI
[2020-03-18] MEDS ORDERED: ZINC SULFATE 2220 MG PO (14:47)
[2020-03-18] MEDS ORDERED: VITAMIN C1000 MG PO (14:48)
[2020-03-18] MEDS ORDERED: VITAMIN D3125 MC1 PO (14:49)
[2020-03-18] MEDS ORDERED: AZITHROMYCIN 2250 MG PO (14:59)
== END 2020-03-18 17:20 | disposition home or self-care (01) | DRG 177 ==
LOC: M.ERS 15:20 → M.ORTHSURG 18:04 → M.TBA-ER 18:04 → M.ORTHSURG 03-16 20:20
PROVIDERS: Family Medicine; Internal Medicine; ADMIT Internal Medicine; ATTEND Internal Medicine
PROC: 05HF33Z Insertion of Infusion Device into Left Cephalic Vein, Percutaneous Approach (ICD-10-PCS; principal; 2020-03-17)
PROC: B54NZZA Ultrasonography of Left Upper Extremity Veins, Guidance (ICD-10-PCS; principal; 2020-03-17)
DX: U07.1 COVID-19 (principal); J96.01 Acute respiratory failure with hypoxia; F32.9 Major depressive disorder, single episode, unspecified; E78.00 Pure hypercholesterolemia, unspecified; J45.909 Unspecified asthma, uncomplicated; E11.9 Type 2 diabetes mellitus without complications; G43.909 Migraine, unspecified, not intractable, without status migrainosus; Z79.82 Long term (current) use of aspirin; Z98.891 History of uterine scar from previous surgery; Z79.899 Other long term (current) drug therapy; Z79.84 Long term (current) use of oral hypoglycemic drugs; Z88.5 Allergy status to narcotic agent; Z88.8 Allergy status to other drugs, medicaments and biological substances

== ENCOUNTER 2020-05-31 22:27 | Emergency (ER) | payer OTHER ==
[~2020-05-31] VITALS: Ht 157.5 cm; Wt 106.1 kg
[~2020-05-31 22:27] MED LIST changes: +ASA81BEC PO; +AZITHROMYCIN 2250 MG PO; +BENICAR40 MG PO; +CIMETIDINE 400400 MG PO; +FARXIGA10 MG PO; +VITAMIN C1000 MG PO; +VITAMIN D3125 MC1 PO; +ZINC SULFATE 2220 MG PO
[2020-05-31 22:57] LABS: ABSOLUTE EOSINOPHILS 0.1 thou/uL (0.0-0.7); ABSOLUTE LYMPHOCYTES 2.1 thou/uL (0.8-5.3); ABSOLUTE MONOCYTES 0.5 thou/uL (0.0-1.2); ABSOLUTE NEUTROPHILS 5.6 thou/uL (1.6-8.1); BASOPHILS 0.5 %; EOSINOPHILS 1.7 %; HEMATOCRIT 38.3 % (37.0-47.0); HEMOGLOBIN 12.8 gm/dL (12.0-15.0); LYMPHOCYTES 24.8 %; MCH 29.9 pg (26.0-34.0); MCHC 33.3 g/dL (28.0-37.0); MCV 89.9 fL (80.0-100.0); MPV 7.2 fl. (7.2-11.1); NUCLEATED RBCS 0 /100WBC; PLATELET COUNT* 226 thou/uL (150-400); RBC 4.26 mil/uL (4.20-5.00); WBC 8.3 thou/uL (4.0-11.0)
[2020-05-31 23:05] LABS: CALCIUM 9.9 mg/dL (8.5-10.1); POTASSIUM 3.7 mmol/L (3.5-5.1)
[2020-05-31 23:09] LABS: PROTIME 10.4 Seconds (9.20-11.50)
[2020-05-31 23:16] LABS: ALBUMIN 3.6 g/dL (3.4-5.0); TOTAL BILIRUBIN 0.4 mg/dL (<0.1-1.0); TOTAL PROTEIN 7.2 g/dL (6.4-8.2)
[2020-06-01] MEDS ORDERED: CARAFATE 1 GM TA1 GM PO (02:07)
[2020-06-01] MEDS ORDERED: OMEPRAZOLE 20 M20 M1 PO (02:07)
[2020-06-01 02:17] VITALS: BP 97/52
--- NOTE | 2020-06-01 15:12 | EKG ---
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
== END 2020-06-01 02:17 | disposition home or self-care (01) ==
LOC: M.ERS 22:27
PROVIDERS: Personal Emergency Response Attendant
DX: R07.89 Other chest pain (principal); R12 Heartburn; J45.909 Unspecified asthma, uncomplicated; E11.9 Type 2 diabetes mellitus without complications; I10 Essential (primary) hypertension; Z79.899 Other long term (current) drug therapy; Z88.5 Allergy status to narcotic agent; Z88.8 Allergy status to other drugs, medicaments and biological substances

== ENCOUNTER 2021-01-02 00:07 | Inpatient (IN) | payer OTHER ==
[~2021-01-02] VITALS: Ht 157.5 cm; Wt 117.9 kg
--- NOTE | ~2021-01-02 | PROC ---
[address] [address] PROCEDURE REPORT Name: SUNG MORROW Room: [facility]- ADM IN M.R.#: [id number] Admission: 01/04/21 Attend Phys: Mary Hercules Discharge: Date of : 74 Report #: [id number] THIS REPORT FOR: cc: Cyndi Garcia MD, Tuongvan T. MD [facility],Medical Records Staff ~ For GI report, please see the Provation report in Perceptive 7 content. By: 1123Medical Records Staff [facility] /CHELI
[~2021-01-02 00:07] MED LIST changes: +CARAFATE 1 GM TA1 GM PO; +OMEPRAZOLE 20 M20 M1 PO
[2021-01-02 00:21] VITALS: BP 103/57
[2021-01-02] MEDS ORDERED: TESSALON PERLE100 M1 (00:27)
[2021-01-02] MEDS ORDERED: FARXIGA10 MG (00:27)
[2021-01-02] MEDS ORDERED: SPIRONOLACTONE50 MG (00:29)
[2021-01-02] MEDS ORDERED: MELOXICAM15 MG (00:30)
[2021-01-02] MEDS ORDERED: PROTONIX40 M2 (00:31)
[2021-01-02] MEDS ORDERED: PRAZOSIN HCL5 MG (00:32)
[2021-01-02] MEDS ORDERED: CYCLOBENZAPRINE5 MG (00:33)
[2021-01-02] MEDS ORDERED: CLONAZEPAM 0.50.5 M1 (00:33)
[2021-01-02] MEDS ORDERED: TRULICITY (00:34)
[2021-01-02] MEDS ORDERED: IBUPROFEN 800800 M1 (00:34)
[2021-01-02 01:35] LABS: ABSOLUTE EOSINOPHILS 0.1 thou/uL (0.0-0.7); ABSOLUTE MONOCYTES 0.4 thou/uL (0.0-1.2); ABSOLUTE NEUTROPHILS 7.5 thou/uL (1.6-8.1); BASOPHILS 0.3 %; EOSINOPHILS 0.8 %; HEMATOCRIT 43.2 % (37.0-47.0); HEMOGLOBIN 14.2 gm/dL (12.0-15.0); LYMPHOCYTES 10.7 %; MCH 29.2 pg (26.0-34.0); MCHC 32.9 g/dL (28.0-37.0); MCV 88.8 fL (80.0-100.0); MONOCYTES 4.9 %; MPV 7.3 fl. (7.2-11.1); NUCLEATED RBCS 0 /100WBC; PLATELET COUNT* 297 thou/uL (150-400); POLYS 83.3 %; RBC 4.86 mil/uL (4.20-5.00); RDW-CV 14.2 % (10.5-14.5); WBC 8.9 thou/uL (4.0-11.0)
[2021-01-02 01:44] LABS: CALCIUM 11.3 mg/dL (8.5-10.1); CREATININE 1.5 mg/dL (0.6-1.3); POTASSIUM 3.7 mmol/L (3.5-5.1)
[2021-01-02 01:55] LABS: ALBUMIN 4.3 g/dL (3.4-5.0); MAGNESIUM 1.5 mg/dL (1.8-2.4); TOTAL BILIRUBIN 0.6 mg/dL (<0.1-1.0); TOTAL PROTEIN 8.4 g/dL (6.4-8.2)
[2021-01-02 03:01] LABS: URINE BILIRUBIN NEGATIVE (Negative); URINE BLOOD NEGATIVE (Negative); URINE CLARITY CLEAR; URINE COLOR YELLOW; URINE GLUCOSE-RANDOM 3+ (Negative); URINE KETONES TRACE (Negative); URINE LEUKOCYTES-REFLEX NEGATIVE (Negative); URINE NITRITE-REFLEX NEGATIVE (Negative); URINE PROTEIN NEGATIVE (Negative); URINE SPECIFIC GRAVITY 1.025 (1.005-1.030); URINE UROBILINOGEN 0.2 E.U./dl (0.2-1.0)
[2021-01-02 05:11] LABS: CALCIUM 10.2 mg/dL (8.5-10.1); CREATININE 1.3 mg/dL (0.6-1.3); PHOSPHORUS* 3.8 mg/dL (2.5-4.9)
[2021-01-02 05:40] VITALS: BP 102/64
--- NOTE | 2021-01-02 05:55 | NUR ---
PT ADMITTED TO FLOOR PER CART, SLEEPING QUIETLY, AWAKENED WITH INTRODUCTIONS BUT DROWSY SO ASSESSMENT DEFERRED AT THIS TIME. ORIENTED TO ROOM AND CALL LITE, BED ALARM ON FOR SAFETY. MAG INFUSING PER PUMP LAC. O2 3L, SAT 97%. WILL CONTINUE TO MONITOR AND ATTEMPT HISTORY AND ASSESSMENT BEFORE SHIFT CHANGE.
[2021-01-02 06:20] VITALS: BP 97/49
[2021-01-02 07:55] VITALS: BP 92/42
[2021-01-02 15:51] VITALS: BP 118/79
--- NOTE | 2021-01-02 17:07 | NUR ---
PATIENT RESTING IN BED. PATIENT IS UP STANDBY ASSIST. PATIENT HAS CONTINUED COMPLAINTS OF ABDOMINAL PAIN, TREATED PARTIALLY WITH MEDICATION AND REST. PATIENT HAD ULTRASOUND THIS AFTERNOON. PATIENT IS TOLERATING CLEAR LIQUIDS. PATIENT DENIES ANY NEEDS AT THIS TIME. CALL LIGHT WITHIN REACH.
[2021-01-02 20:00] VITALS: BP 95/53
--- NOTE | 2021-01-03 05:14 | NUR ---
PT SLEPT WELL OFF AND ON THIS SHIFT. RECEIVED PAIN MED ONCE FOR CO ABD PAIN AT START OF SHIFT WITH GOOD RESULT. PT UP AD YAHAIRA TO BR, STATES BM OVERNIGHT AFTER MAG CITRATE. TOLERATING CLEARS WIHTOUT N/V. LAC IVF INFUSING PER PUMP, ABX GIVEN ORDERED. ABLE TO USE CALL LITE AND MAKE NEEDS KNOWN.
[2021-01-03 05:50] VITALS: BP 88/57
[2021-01-03 06:00] VITALS: BP 101/62
[2021-01-03 07:45] VITALS: BP 91/58
[2021-01-03 07:58] LABS: CALCIUM 9.5 mg/dL (8.5-10.1); CREATININE 1.3 mg/dL (0.6-1.3); POTASSIUM 4.3 mmol/L (3.5-5.1)
[2021-01-03 08:03] LABS: ALBUMIN 3.4 g/dL (3.4-5.0); TOTAL BILIRUBIN 0.9 mg/dL (<0.1-1.0)
[2021-01-03 09:05] LABS: ABSOLUTE EOSINOPHILS 0.3 thou/uL (0.0-0.7); ABSOLUTE LYMPHOCYTES 0.9 thou/uL (0.8-5.3); ABSOLUTE MONOCYTES 0.3 thou/uL (0.0-1.2); ABSOLUTE NEUTROPHILS 3.1 thou/uL (1.6-8.1); BASOPHILS 0.2 %; EOSINOPHILS 5.7 %; HEMATOCRIT 36.9 % (37.0-47.0); LYMPHOCYTES 20.5 %; MCH 29.6 pg (26.0-34.0); MCHC 32.9 g/dL (28.0-37.0); MONOCYTES 6.7 %; MPV 7.7 fl. (7.2-11.1); NUCLEATED RBCS 1 /100WBC; PLATELET COUNT* 237 thou/uL (150-400); POLYS 66.9 %; RDW-CV 14.2 % (10.5-14.5); WBC 4.6 thou/uL (4.0-11.0)
[2021-01-03 09:07] LABS: HEMOGLOBIN 12.2 gm/dL (12.0-15.0)
[2021-01-03 16:00] VITALS: BP 104/56
[2021-01-03 19:45] VITALS: BP 97/63
--- NOTE | 2021-01-03 19:45 | NUR ---
PATIENT RESTIN GIN BED. PATIENT IS UP STANDBY ASSIST TO BATHROOM. PATIENT IS TOLERSTING REGULAR DIET. PATIENT HAS CONTINUED COMPLAINTS OF RUQ PAIN, TREATED ADEQUATELY WITH MEDICATION. PATIENT IS SCHEDULED FOR EGD IN AM, NPO AFTER MIDNIGHT. PATIENT DENIES ANY NEEDS AT THIS TIME. CALL LIGHT WITHIN REACH.
[2021-01-04 04:33] LABS: HEMOGLOBIN 11.3 gm/dL (12.0-15.0); MCH 29.6 pg (26.0-34.0); MCHC 33.3 g/dL (28.0-37.0); MCV 89.1 fL (80.0-100.0); MPV 7.4 fl. (7.2-11.1); RBC 3.81 mil/uL (4.20-5.00); RDW-CV 13.9 % (10.5-14.5); WBC 5.2 thou/uL (4.0-11.0)
[2021-01-04 04:40] VITALS: BP 102/72
[2021-01-04 04:56] LABS: ALBUMIN 3.1 g/dL (3.4-5.0); CALCIUM 9.2 mg/dL (8.5-10.1); POTASSIUM 4.1 mmol/L (3.5-5.1); TOTAL BILIRUBIN 0.4 mg/dL (<0.1-1.0); TOTAL PROTEIN 6.7 g/dL (6.4-8.2)
--- NOTE | 2021-01-04 06:06 | NUR ---
PT SLEPT WELL OVERNIGHT. NPO SINCE MIDNIGHT FOR EGD TODAY. UP WITH SBA TO BR TO VOID. RFA IVF INFUSING PER PUMP. IV PAIN MED GIVEN ONCE THIS SHIFT FOR CO UPPER ABD PAIN WITH GOOD RESULT. TOLERATED REGULAR DIET WITHOUT N/V PRIOR TO NPO. ACCUCHECK 103 AT HS. ABLE TO USE CALL LITE AND MAKE NEEDS KNOWN.
[2021-01-04 08:35] VITALS: BP 94/49
--- NOTE | 2021-01-04 15:19 | NUR ---
Pt is A&O. Resides at home with family. Independent. Pt has a walker and cane that she can use for mobility. No home o2. No hx of HH or SNF. Pt had EGD today, plan lap armand tomorrow. Goal is home at tn, no needs.
[2021-01-04 16:00] VITALS: BP 102/66
--- NOTE | 2021-01-04 18:25 | NUR ---
PT A&Ox4. VITALS STABLE. IV PATENT. ON RA. PAIN AND NAUSEA MEDS GIVEN PRN ORDERED. UP AD YAHAIRA. REG DIET. WILL BE NPO AT MIDNIGHT FOR CRISTÓBAL FISHER IN AM AT 0930. WILL CONTINUE TO MONITOR.
[2021-01-04 20:00] VITALS: BP 93/57
[2021-01-05] VITALS: BP 102/68
[2021-01-05 04:24] LABS: HEMATOCRIT 33.4 % (37.0-47.0); HEMOGLOBIN 11.1 gm/dL (12.0-15.0); MCH 29.6 pg (26.0-34.0); MCHC 33.1 g/dL (28.0-37.0); MCV 89.2 fL (80.0-100.0); MPV 6.8 fl. (7.2-11.1); RBC 3.75 mil/uL (4.20-5.00); RDW-CV 13.6 % (10.5-14.5); WBC 4.8 thou/uL (4.0-11.0)
[2021-01-05 04:36] LABS: CALCIUM 9.1 mg/dL (8.5-10.1); MAGNESIUM 1.5 mg/dL (1.8-2.4); POTASSIUM 3.8 mmol/L (3.5-5.1); TOTAL BILIRUBIN 0.3 mg/dL (<0.1-1.0); TOTAL PROTEIN 6.4 g/dL (6.4-8.2)
[2021-01-05 08:00] VITALS: BP 111/71; BP 115/54
--- NOTE | 2021-01-05 10:47 | EKG ---
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
[2021-01-05] MEDS ORDERED: OXYCODONE HCL 55 MG PO (11:40)
[2021-01-05] MEDS ORDERED: TYLENOL325 MG PO (11:42)
--- NOTE | 2021-01-05 12:07 | OP ---
[facility] [address] [place] [address] OPERATIVE REPORT Name: SUNG MORROW Room: [address] IN M.R.#: [id number] Admission: 01/04/21 Attend Phys: Mary Hercules Discharge: Date of : 74 Report #: [id number] THIS REPORT FOR: cc: Cyndi Garcia MD, Tuongvan T. MD Kramer, Adam P. DO ~ DATE OF SURGERY: 01/05/2021 PREOPERATIVE DIAGNOSES: Symptomatic cholelithiasis and morbid obesity. POSTOPERATIVE DIAGNOSES: Symptomatic cholelithiasis and morbid obesity plus intraabdominal adhesions. PROCEDURE: Laparoscopic cholecystectomy and lysis of adhesions. SURGEON: Irvin Cruz DO. DIRECTOR IMAGING: Abdullahi Wiley DO SECOND FRONT TENDER: Fausto Sequeira DO ANESTHESIA: General endotracheal and TAP block performed by anesthesia. ESTIMATED BLOOD LOSS: 40 mL. COMPLICATIONS: None. DESCRIPTION OF PROCEDURE: After obtaining proper consents and discussing risks and complications with the patient, she was taken to the operating room, laid in the supine position and administered general endotracheal anesthetic. She was then prepped and draped in the usual sterile fashion. TAP blocks were performed by anesthesia. Once this was done, timeout was performed. We confirmed the appropriate patient and procedure. Preoperative antibiotics had been given. SCDs were in place. We then made supraumbilical skin incision with a #11 scalpel blade. This was carried down through the skin and subcutaneous tissue using electrocautery for hemostasis. Once the fascia was encountered, it was incised along the midline, grasped and elevated with Leah clamps. The peritoneum was then bluntly opened using a hemostat. We then placed 2-0 Vicryl sutures in a gcokmn-hg-nmikj fashion to secure the Jose trocar, which was then inserted and insufflation was begun. Once insufflation was complete, full visual inspection of the anterior abdominal organs was performed. This revealed a fatty appearing liver. There were some adhesions along the midline of omentum. There was also noted to be some adhesions from the diaphragm to the liver consistent with Pgiy-Izwp-Qpyqbd. There was a large amount of omental fat. We then placed the patient in reverse Trendelenburg position, rotated her to the left. We placed three more 5 mm trocars. [place] [address] OPERATIVE REPORT Name: SUNG MORROW Room: [address] IN [facility].#: [id number] Admission: 01/04/21 Attend Phys: Mary Hercules Discharge: Date of : 74 Report #: [id number] elevate the gallbladder. The adhesions to the gallbladder were taken down using electrocautery as well as blunt dissection until we could visualize the Kevin's pouch. Kevin's pouch was then grasped and elevated. The hepatoduodenal ligament was then stripped down until we could visualize the cystic duct as it coursed directly into the gallbladder. The cystic duct was completely dissected free. We confirmed that it was going directly into the gallbladder. It was then clipped proximally and distally and then divided. The cystic artery was located behind this and I clipped this proximally and distally and then went to divide it. The artery continued to bleed. I placed multiple clips, approximately 3-4 more clips and I was finally able to stop this from bleeding. There must have been a small posterior branch. Once this was stopped, I then copiously irrigated and suctioned all the fluid back to assure good hemostasis. We then continued with dividing the cystic artery and then removing the gallbladder from the liver bed using electrocautery. Once this was all complete, the cystic duct and cystic artery stumps and liver bed were all checked for any leak or bleeding, there was none identified. We again copiously irrigated. We placed the gallbladder into an Endopouch and it was removed through the umbilical incision. The insufflation was stopped, all air was released. Trocars were removed. The umbilical fascia was closed using the 2 previously placed 0 Vicryl sutures plus 2 additional 0 Vicryl sutures. Prior to all this, we did take down the adhesions along the midline. This lysis of adhesions only took approximately 5 minutes. We then removed the gallbladder from the umbilical incision. The insufflation was stopped, all air was released. The umbilical fascia was closed using the 2 previously placed 0 Vicryl sutures plus 2 additional 0 Vicryl suture. Skin incisions were all closed using 4-0 Monocryl subcuticular stitches and Dermabond. The patient was awakened in the operating room and transported to recovery room in stable condition. <ELECTRONICALLY SIGNED> By: Irvin Cruz DO 01/05/21 1207 1027 1049Agideon Cruz DO /nt
--- NOTE | 2021-01-05 15:55 | NUR ---
Pt having surgery today. DC home afterwards
[2021-01-05 16:00] VITALS: BP 107/63
--- NOTE | 2021-01-05 18:54 | NUR ---
PT WAS BROUGHT UP TO THE FLOOR AFTER EGD WAS COMPLETED THIS AFTERNOON. VSS AFEBRILE PT WAS PLACED ON TELE AND IS SR. PT HAS BANANA BAG INFUSING WITHOUT DIFFICULTY. WILL CONTINUE TO MONITOR PLAN OF CARE.
[2021-01-05 20:00] VITALS: BP 113/76
[2021-01-06] VITALS: BP 124/76
[2021-01-06 04:00] VITALS: BP 103/65
[2021-01-06 05:00] LABS: HEMATOCRIT 36.3 % (37.0-47.0); HEMOGLOBIN 12.4 gm/dL (12.0-15.0); MCH 30.1 pg (26.0-34.0); MCHC 34.1 g/dL (28.0-37.0); MCV 88.5 fL (80.0-100.0); MPV 7.5 fl. (7.2-11.1); RBC 4.1 mil/uL (4.20-5.00); RDW-CV 13.7 % (10.5-14.5); WBC 7.6 thou/uL (4.0-11.0)
[2021-01-06 05:25] LABS: ALBUMIN 3.5 g/dL (3.4-5.0); CALCIUM 9.7 mg/dL (8.5-10.1); CREATININE 1.2 mg/dL (0.6-1.3); MAGNESIUM 2.6 mg/dL (1.8-2.4); PHOSPHORUS* 2.8 mg/dL (2.5-4.9); POTASSIUM 4.7 mmol/L (3.5-5.1); TOTAL BILIRUBIN 0.4 mg/dL (<0.1-1.0); TOTAL PROTEIN 7.5 g/dL (6.4-8.2)
--- NOTE | 2021-01-06 05:34 | NUR ---
PATIENT SLEPT PART OF THE NIGHT. IV FLUIDS CONTINUE TO INFUSE ORDERED. PATIENT WAS GIVEN PAIN MEDICINE NEEDED WITH SOME RELIEF. PATIENT SHOULD DC HOME TODAY. WILL CONTINUE TO MONITOR.
[2021-01-06 08:00] VITALS: BP 109/67
[2021-01-06 13:23] VITALS: BP 101/64
[2021-01-06 15:07] VITALS: BP 101/64
--- NOTE | 2021-01-06 16:12 | NUR ---
PT DISCHARGED HOME WITH ALL BELONGINGS ACCOMPANIED BY HER DAUGHTER. PT UP AMBULKATING IN HER ROOM WITH STEADY GAIT SALINE LOCK REMOVED HUB INTACT. PT DENIED PAIN ON DISMISSAL. PT HAS A GOOD UNDERSTANDING OF DISCHARGE INSTRUCTIONS. PT DISCHARGED HOME.
--- NOTE | 2021-01-07 12:07 | PATH ---
[address] [address] PATHOLOGY RPT PROCEDURE Name: SUNG MORROW Room: [facility] [place] IN M.R.#: [id number] Admission: 01/04/21 Date of : 74 Discharge: 01/06/21 Report #: [id number] Path Case #: [id number] [facility] Accession Number: [id number] . 01 Material submitted: . stomach - ANTRAL BIOPSY FOR ANTRAL EROSIONS . 01 Clinical history: . EGD IN OR CHOLELITHIASIS, INTRACTABLE ABDOMINAL PAIN . 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 (JOHANN/db; 01/06/2021) . Special stain: H. pylori immuno LBQ 01/06/2021 1039 Local . 02 Electronically signed: . Jason Garcia MD, Pathologist NPI- [id number] . 01 Gross description: . The specimen is submitted in formalin, labeled "Sung Morrow, antral biopsy". Received are multiple segments of pale croft tissue ranging in size from 0.2 to 0.5 cm in maximum dimensions. The specimen is submitted in cassette A1. ([facility]; 01/05/2021) NRI/NRI 01/05/2021 1247 Local . 02 Pathologist provided ICD-10: K29.50 . 02 CPT . 443138, V66861 Specimen Comment: A courtesy copy of this report has been sent to [phone] Specimen Comment: [phone], Specimen Comment: Report sent to , DR NICOLE / DR LANGSTON Specimen Comment: A duplicate report has been generated due to demographic updates. Performed at: [address] [id number] MD Aden Neri MD Phone: [phone] [place] [address] PATHOLOGY RPT PROCEDURE Name: SUNG MORROW Room: [address] DIS IN M.R.#: [id number] Admission: 01/04/21 Date of : 74 Discharge: 01/06/21 Report #: [id number] Path Case #: [id number] Performed at: [address] [place] [address], [place], [place] [id number] MD Jason Garcia MD Phone: [phone]
--- NOTE | 2021-01-07 16:36 | CON ---
[address] [address] CONSULTATION Name: SUNG MORROW Room: [address] IN M.R.#: [id number] Admission: 01/04/21 Attend Phys: Mary Hercules Discharge: 01/06/21 Date of : 74 Report #: [id number] THIS REPORT FOR: cc: Cyndi Garcia MD, Tuongvan T. MD Namin, Farid M. MD ~ cc: Cyndi Garcia MD DATE OF CONSULTATION: 01/04/2021 Please note at the time of this dictation, the patient was seen and physically examined by myself. REASON FOR CONSULTATION: Abdominal pain. HISTORY OF PRESENT ILLNESS: This 50-year-old female presented to the Emergency Room with abdominal pain. She describes it as being very colicky over the past week and it follows after eating especially high fatty, greasy foods. She states it is located in the upper quadrant and in the epigastric area, no radiation and on admission it was a 9/10. She just received pain medicine when I went in and talked to her and she was feeling a little bit better. She is not having any significant nausea or vomiting at this time. She states her bowels move daily to every other day and she does take MiraLax once or twice a day to help facilitate this. She has not noticed any bright red blood or melanotic stool. The patient did undergo an EGD back in 07/2019 for some dysphagia and dilated her esophagus. She has noted some chronic inflammation. She had a colonoscopy back in 2018 that showed diverticulosis and hemorrhoids with repeat in 5 years. ALLERGIES: INCLUDE TRAMADOL, HYDROCODONE AND TOPAMAX. MEDICATIONS FROM HOME: Include Carafate, omeprazole, vitamin D, Wellbutrin, Symbicort, VESIcare, famotidine b.i.d., Trulicity, cimetidine, Benicar, Lipitor, Singulair, meloxicam, spironolactone, Farxiga, Flexeril, and clonazepam. PAST MEDICAL HISTORY: Depression, high blood pressure, high cholesterol, asthma, bout of diverticulitis back in 09/2019, diabetes. PAST SURGICAL HISTORY: , right foot, bilateral carpal tunnel, and right hip. FAMILY HISTORY: Significant for breast cancer in sister and niece on maternal side along with cervical cancer. SOCIAL HISTORY: Denies any recreational drugs. No tobacco use[place] [address] CONSULTATION Name: SUNG MORROW Room: [address]#: [id number] Admission: 01/04/21 Attend Phys: Mary Hercules Discharge: 01/06/21 Date of : 74 Report #: [id number] socially about once a week, maybe 1 or 2 drinks. REVIEW OF SYSTEMS: A 12-point review of systems is essentially negative except what is mentioned in the HPI. PHYSICAL EXAMINATION: VITAL SIGNS: Temperature 36.5, pulse 76, respirations 19, blood pressure 102/72. HEART: Regular rate and rhythm. LUNGS: Clear, but diminished. ABDOMEN: Soft, positive bowel sounds in all 4 quadrants with tenderness noted in the right upper quadrant and epigastric area. LABORATORY DATA: Hemoglobin on admission was 12.2, she is 11.3, white count 5.2, platelets 223. GFR 72. LFTs are normal. BUN is 17. ESR is 48. CRP is 42.6. Ultrasound showed gallbladder being distended with thickened wall with no stones noted. CBD at 5 mm. IMPRESSION: 1. Epigastric and right upper quadrant pain. 2. Abnormal ultrasound, gallbladder wall thickening. 3. Non-steroid anti-inflammatory drug use daily. 4. Anemia, mild. 5. Morbid obesity. 6. Family history of breast and cervical cancer. PLAN: 1. EGD today with Dr. Queen. 2. Further recommendations to be made after the procedure has been performed. Thank you for allowing us to participate in this patient's care. Please do not hesitate to call with any questions regarding this consult. <ELECTRONICALLY SIGNED> By: Toni Queen MD 01/07/21 1636 0726 1216Toni Queen MD /nt
--- NOTE | 2021-01-08 11:07 | PATH ---
[address] [address] PATHOLOGY RPT PROCEDURE Name: SUNG MORROW Room: [address] IN M.R.#: [id number] Admission: 01/04/21 Date of : 74 Discharge: 01/06/21 Report #: [id number] Path Case #: [id number] [facility] Accession Number: [id number] . 01 Material submitted: . gallbladder - GALLBLADDER . 01 Clinical history: . LAPAROSCOPIC CHOLECYSTECTOMY CHOLECYSTITIS . 02 Diagnosis: Gallbladder: - Chronic and acute cholecystitis. . (JOHANN:mmnelia; 01/07/2021) [facility] 01/07/2021 [facility] Local . 02 Electronically signed: . Jason Garcia MD, Pathologist NPI- [id number] . 01 Gross description: . Fixative: Formalin Labeled: Sung Morrow, gallbladder Specimen received: Previously disrupted with two transmural defects (0.4 x 0.2 cm and 0.6 x 0.5 cm) Dimensions: 10.5 x 2.9 x 1.9 cm Lymph node: None Serosa: Purple-montgomery, dusky and hemorrhagic Calculi: None Mucosa: Croft and velvety without krishnan stippling Average wall thickness: Ranging from 0.2 cm to 0.6 cm Abnormalities: The submucosa at the dome is edematous croft and measures up to 0.6 cm thick. The lumen contains brown-croft, soft and hemorrhagic debris (2.6 x 2.0 x 0.4 cm in aggregate) . A1: Gallbladder, represented, ([place]; 01/06/2021) DKA/DKA 01/06/2021 1405 Local . 02 Pathologist provided ICD-10: K81.2 . 02 CPT . 735919 Specimen Comment: A courtesy copy of this report has been sent to [phone] Specimen Comment: [id number], [place] [address] PATHOLOGY RPT PROCEDURE Name: SUNG MORROW Room: [address] IN [facility]#: [id number] Admission: 01/04/21 Date of : 74 Discharge: 01/06/21 Report #: [id number] Path Case #: [id number] Specimen Comment: Report sent to , DR NICOLE / DR POOLE Specimen Comment: A duplicate report has been generated due to demographic updates. Performed at: 01 [facility] [address], [place], [place] [id number] MD Aden Neri MD Phone: [phone] Performed at: 02 [facility] [place] [address] [address], [place], [place] [id number] MD Jason Garcia MD Phone: [phone]
== END 2021-01-06 16:45 | disposition home or self-care (01) | DRG 417 ==
LOC: M.ERS 00:07 → M.TBA-ER 04:18 → M.2W 04:18
PROVIDERS: Emergency Medicine; Student in an Organized Health Care Education/Training Program; Surgery; ADMIT Internal Medicine; ATTEND Internal Medicine
DX: K80.63 Calculus of gallbladder and bile duct with acute cholecystitis with obstruction (principal); R65.11 Systemic inflammatory response syndrome (SIRS) of non-infectious origin with acute organ dysfunction; N17.9 Acute kidney failure, unspecified; Z68.42 Body mass index [BMI] 45.0-49.9, adult; E66.01 Morbid (severe) obesity due to excess calories; Z20.822 Contact with and (suspected) exposure to COVID-19; F32.9 Major depressive disorder, single episode, unspecified; E11.9 Type 2 diabetes mellitus without complications; J45.909 Unspecified asthma, uncomplicated; E78.00 Pure hypercholesterolemia, unspecified; E78.5 Hyperlipidemia, unspecified; I25.10 Atherosclerotic heart disease of native coronary artery without angina pectoris; D64.9 Anemia, unspecified; K59.00 Constipation, unspecified; K21.9 Gastro-esophageal reflux disease without esophagitis; R13.10 Dysphagia, unspecified; K44.9 Diaphragmatic hernia without obstruction or gangrene; I10 Essential (primary) hypertension; K31.9 Disease of stomach and duodenum, unspecified; R74.01 Elevation of levels of liver transaminase levels; Z88.8 Allergy status to other drugs, medicaments and biological substances; Z88.6 Allergy status to analgesic agent; Z79.1 Long term (current) use of non-steroidal anti-inflammatories (NSAID); Z80.3 Family history of malignant neoplasm of breast; Z80.8 Family history of malignant neoplasm of other organs or systems

== ENCOUNTER → 2021-01-14 | Outpatient (CLI) | payer OTHER ==
[~2021-01-14] MED LIST changes: +CLONAZEPAM 0.50.5 M1; +CYCLOBENZAPRINE5 MG; +FARXIGA10 MG; +IBUPROFEN 800800 M1; +MELOXICAM15 MG; +OXYCODONE HCL 55 MG PO; +PRAZOSIN HCL5 MG; +PROTONIX40 M2; +SPIRONOLACTONE50 MG; +TESSALON PERLE100 M1; +TRULICITY; +TYLENOL325 MG PO
== END ==
LOC: M.ULTRA 01-13 16:00
PROVIDERS: ATTEND Family Medicine
DX: E83.52 Hypercalcemia (principal)

== ENCOUNTER 2021-01-15 13:58 | Emergency (ER) | payer OTHER ==
[~2021-01-15] VITALS: Ht 154.9 cm; Wt 105.2 kg
[2021-01-15 15:42] VITALS: BP 131/64
--- NOTE | 2021-01-16 11:25 | EKG ---
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 : 1970 Requested By: Dylan Waters Order Number: [id number] MD: Philipp Hair Measurements Intervals [place] Rate: 117 P: 56 SC: 130 QRS: 28 QRSD: 70 T: -9 QT: 299 QTc: 417 Interpretive Statements Sinus tachycardia Borderline T abnormalities, diffuse leads Baseline wander in lead(s) II,III,aVF Compared to ECG 01/05/2021 08:56:05 T-wave abnormality now present Sinus rhythm no longer present Electronically Signed On 01-16-2021 11:24:59 CDT by Philipp Hair [email or web address] <ELECTRONICALLY SIGNED> By: Philipp Hair MD, [facility] 01/16/21 1124 1400 1400 Philipp Hair MD, [facility] /EPI
== END 2021-01-15 15:46 | disposition left against medical advice (07) ==
LOC: M.ERS 13:58
DX: R07.89 Other chest pain (principal); Z53.21 Procedure and treatment not carried out due to patient leaving prior to being seen by health care provider

== ENCOUNTER → 2021-02-05 | Outpatient (CLI) | payer OTHER | LOC: M.CT 09:00 | PROVIDERS: ATTEND Family Medicine | DX: E04.1 Nontoxic single thyroid nodule (principal) ==

== ENCOUNTER → 2021-03-29 | Outpatient (CLI) | payer OTHER | LOC: M.ULTRA 13:30 | PROVIDERS: ATTEND Family Medicine | DX: M79.661 Pain in right lower leg (principal); R09.89 Other specified symptoms and signs involving the circulatory and respiratory systems ==

== ENCOUNTER 2021-04-30 20:54 | Emergency (ER) | payer OTHER ==
[~2021-04-30] VITALS: Ht 157.5 cm; Wt 107.0 kg
[2021-04-30 21:40] LABS: INFLUENZA A ANTIGEN Negative (Negative); INFLUENZA B ANTIGEN Negative (Negative)
[2021-04-30 23:15] LABS: ABSOLUTE EOSINOPHILS 0.2 thou/uL (0.0-0.7); ABSOLUTE LYMPHOCYTES 1.1 thou/uL (0.8-5.3); ABSOLUTE MONOCYTES 0.3 thou/uL (0.0-1.2); ABSOLUTE NEUTROPHILS 5.2 thou/uL (1.6-8.1); BASOPHILS 0.4 %; EOSINOPHILS 2.4 %; HEMATOCRIT 37.2 % (37.0-47.0); HEMOGLOBIN 12.5 gm/dL (12.0-15.0); LYMPHOCYTES 16.3 %; MCHC 33.7 g/dL (28.0-37.0); MONOCYTES 4.7 %; MPV 6.8 fl. (7.2-11.1); NUCLEATED RBCS 0 /100WBC; PLATELET COUNT* 233 thou/uL (150-400); POLYS 76.2 %; RBC 4.18 mil/uL (4.20-5.00); RDW-CV 14.4 % (10.5-14.5); WBC 6.8 thou/uL (4.0-11.0)
[2021-04-30 23:24] LABS: CALCIUM 9.7 mg/dL (8.5-10.1); POTASSIUM 3.4 mmol/L (3.5-5.1)
[2021-04-30 23:29] LABS: ALBUMIN 3.5 g/dL (3.4-5.0); TOTAL BILIRUBIN 0.6 mg/dL (<0.1-1.0); TOTAL PROTEIN 7.2 g/dL (6.4-8.2)
[2021-05-01 02:57] VITALS: BP 123/51
--- NOTE | 2021-05-01 14:38 | EKG ---
[place] [address] ELECTROCARDIOGRAM REPORT Name: CRISTHIANSUNG Room: [facility]#: [id number] Admission: 04/30/21 Attend Phys: Discharge: 05/01/21 Date of : 74 Date of Service: 04/30/212111 Report #: [id number] THIS REPORT FOR: //name// 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: : 1970 Requested By: Alexandra Abbott Order Number: [id number] MD: Philipp Hair Measurements Intervals [place] Rate: 103 P: 30 NC: 159 QRS: 34 QRSD: 70 T: -3 QT: 299 QTc: 392 Interpretive Statements Sinus tachycardia Borderline T abnormalities, anterior leads Baseline wander in lead(s) V1 Compared to ECG 01/15/2021 14:00:29 rate has slowed Electronically Signed On 05-01-2021 14:38:26 DIRECTOR NURSES[employer]ISTRY by Philipp Hair [email or web address] <ELECTRONICALLY SIGNED> By: Philipp Hair MD, FACC 05/01/21 1438 11 11 Philipp Hair MD, [facility] /EPI
== END 2021-05-01 02:58 | disposition home or self-care (01) ==
LOC: M.ERS 20:54
PROVIDERS: Personal Emergency Response Attendant
DX: R06.02 Shortness of breath (principal); Z20.822 Contact with and (suspected) exposure to COVID-19; F32.9 Major depressive disorder, single episode, unspecified; E78.00 Pure hypercholesterolemia, unspecified; J45.909 Unspecified asthma, uncomplicated; E11.9 Type 2 diabetes mellitus without complications; Z90.49 Acquired absence of other specified parts of digestive tract; Z79.899 Other long term (current) drug therapy; Z88.5 Allergy status to narcotic agent; Z88.6 Allergy status to analgesic agent